=== PATIENT | male | born 1955 | race Caucasian/White ===

== ENCOUNTER 2017-11-08 12:59 | Inpatient (IN) | payer MEDICARE ==
[~2017-11-08] VITALS: Ht 177.8 cm; Wt 85.3 kg
[2017-11-08] VITALS (10 sets, daily range): BP systolic 156–201; BP diastolic 82–110
--- NOTE | 2017-11-08 13:08 | NUR ---
[id number] FROM HOME: ALOC, OVERDOSED ON NORCO UNKNOWN QUANTITY,SI NOTE AT BEDSIDE. RESPONDED TO NARCAN. BS IN FIELD 115. PLACED ON THE MONITOR. AWAITING MD FOR EVAL.
[2017-11-08 13:34] LABS: BASOPHILS % (AUTO) 0.5 % (0.0-2.0); EOSINOPHILS % (AUTO) 0.8 % (0.0-6.0); HEMATOCRIT 47 % (39-51); HEMOGLOBIN 15.5 g/dL (13.5-17.5); LYMPHOCYTES # (AUTO) 0.9 /CMM (0.8-4.8); LYMPHOCYTES % (AUTO) 22.5 % (20.0-44.0); MEAN CORPUSCULAR HEMOGLOBIN 27 PG (26.0-33.0); MEAN CORPUSCULAR HGB CONC 33 g/dl (31.0-36.0); MEAN CORPUSCULAR VOLUME 82 fL (80-96); MONOCYTES # (AUTO) 0.3 /CMM (0.1-1.30); MONOCYTES % (AUTO) 7.5 % (2.0-12.0); NEUTROPHILS # (AUTO) 2.7 /CMM (1.8-8.9); NEUTROPHILS % (AUTO) 68.7 % (43.0-81.0); PLATELET COUNT (AUTO) 175 /CMM (150-450); RDW COEFFICIENT OF VARIATION 13.7 (11.5-15.0); RED BLOOD CELL COUNT(AUTO) 5.77 MIL/uL (4.5-6.0); WHITE BLOOD COUNT (AUTO) 3.9 K/uL (4.3-11.0)
[2017-11-08 13:41] LABS: CALCIUM, SERUM 8.9 mg/dL (8.5-10.1); CARBON DIOXIDE 29 mmol/L (21-32); CHLORIDE 106 mmol/L (98-107); CREATININE 1.1 mg/dL (0.6-1.3); GLUCOSE 152 mg/dL (74-106); SODIUM SERUM 139 mmol/L (136-145); UREA NITROGEN, BLOOD 13 mg/dL (7-18)
[2017-11-08 13:47] LABS: ACETAMINOPHEN 22 ug/ml (10-30); ALANINE AMINOTRANSFERASE 21 U/L (12-78); ALBUMIN 3.2 g/dL (3.4-5.0); ALCOHOL, BLOOD < 3 mg/dL (0-0); ALKALINE PHOSPHATASE 70 U/L (46-116); ASPARTATE AMINOTRANSFERASE 11 U/L (15-37); BILIRUBIN,DIRECT 0.2 mg/dL (0.0-0.2); BILIRUBIN,TOTAL 0.7 mg/dL (0.2-1.0); SALICYLATE 0.8 mg/dL (2.8-20.0); TOTAL PROTEIN, SERUM 6.1 g/dL (6.4-8.2)
[2017-11-08] MEDS ORDERED: NALOXONE HCL 0.4 MG/ML AMPUL IV ONE (14:30)
[2017-11-08] MEDS ORDERED: IV NS 0.9% 1,000 ML BAG IV ONE (14:30)
[2017-11-08] MEDS ORDERED: NALOXONE PREFILLED SYRINGE 2 MG/2 ML SYRINGE ONE ×2 (14:38→16:16)
--- NOTE | 2017-11-08 14:55 | NUR ---
PATIENT TRANSPORTED FOR CT.
[2017-11-08 14:56] LABS: INR 0.95 (0.85-1.15)
[2017-11-08 15:01] LABS: TROPONIN I < 0.017 ng/mL (0.00-0.056)
[2017-11-08 15:16] LABS: THYROID STIMULATING HORMONE 0.546 uIU/mL (0.358-3.74)
[2017-11-08 15:21] LABS: BILIRUBIN,URINE LARGE (NEGATIVE); BLOOD, URINE Negative Ery/uL (NEGATIVE); COLOR,URINE Yellow (YELLOW); KETONES,URINE Negative (NEGATIVE); LEUKOCYTE ESTERASE ,URINE Negative (NEGATIVE); NITRITE, URINE Negative (NEGATIVE); PH,URINE 5.5 (5.0-8.0); PROTEIN,URINE Negative (NEGATIVE); UGLUCOSE Negative (NEGATIVE); UROBILINOGEN,URINE 0.2 EU/dL (0.2)
[2017-11-08 15:22] LABS: APPEARANCE,URINE Clear (CLEAR)
--- NOTE | 2017-11-08 15:30 | NUR ---
Patient is resting comfortably in bed with eyes closed. Easily aroused. VSS
[2017-11-08] MEDS ORDERED: ACETYLCYSTEINE IV ONE ×5 (16:00→17:00)
[2017-11-08] MEDS ORDERED: D5W IV ONE ×5 (16:00→17:00)
[2017-11-08] MEDS ORDERED: PIPERACILLIN /TAZOBACTAM 3.375 G in IV D5W 50 ML IV ONE (16:00)
[2017-11-08] MEDS ORDERED: ACETYLCYSTEINE IV 6,000 MG/30 ML VIAL IV ONE (16:00)
--- NOTE | 2017-11-08 16:00 | NUR ---
CALLED NURSING SAND CLEANING MACHINE OPERATOR AND REQUESTED AN ICU BED FOR THIS PT.
--- NOTE | 2017-11-08 16:01 | NUR ---
CALLED [facility] FOR PANEL CALL AND MANINDER ROWLAND WAS PAGED.
[2017-11-08] MEDS ORDERED: NALOXONE HCL 2 MG in IV D5W 245 ML IV PRN (16:30)
[2017-11-08] MEDS ORDERED: ONDANSETRON HCL/PF 4 MG/2 ML VIAL IVP PRN (16:30)
--- NOTE | 2017-11-08 16:30 | NUR ---
PT IS ASSIGNED TO ICU RM#: [id number], DX: ACETAMINOPHEN TOXICITY & SEPSIS, AND ACCEPTING: MANINDER ROWLAND NP
--- NOTE | 2017-11-08 16:57 | NUR ---
REPORT GIVEN TO GEOFFREY SOSA FOR [facility] ICU 258
[2017-11-08] MEDS ORDERED: IV NS 0.9% 1,000 ML IV ONE (17:00)
--- NOTE | 2017-11-08 17:20 | NUR ---
ENDORSED THE MUCOMYST AND NARCAN DRIP TO GEOFFREY SOSA.
[2017-11-08 17:30] LABS: ALBUMIN 2.9 g/dL (3.4-5.0); BILIRUBIN,DIRECT 0.2 mg/dL (0.0-0.2); BILIRUBIN,TOTAL 0.8 mg/dL (0.2-1.0); TOTAL PROTEIN, SERUM 5.6 g/dL (6.4-8.2)
--- NOTE | 2017-11-08 17:45 | NUR ---
CARTOGRAPHY SUPERVISOR NOTES RECEIVED PATIENT AOX1 LETHARGIC , DROWSY , FOLLOW SIMPLE COMMANDS , , NOT IN ACUTE DISTRESS , RESPIRATIONS EVEN AND UNLABORED , SPO2 OF 100% VIA 2LPM NC , SB 58 ON BEDSIDE MONITOR , AFEBRILE , NELSON CATHETER INSERTED DRAINING WITH CLEAR URINE VIA GRAVITY , SKIN ASSESSMENT DONE , NO WOUNDS NOTED , SKIN IS INTACT , IV OF L FA # 20 WITH NS @ 125ML/HR , R AC # 18 WITH NARCAN @ 0.1MG/HR INFUSING WELL , ALL NEEDS ATTENDED , BED ON LOW AND LOCKED POSITION , SIDE RAILS X2 ,CALL LIGHT WITHIN REACH , ADMISSION ORDERS CARRIED OUT , WILL CONTINUE TO MONITOR .
[2017-11-08] MEDS: ENOXAPARIN SODIUM 40 MG/0.4 ML DISP.SYRIN SQ SCH ×3 (18:11→21:00)
--- NOTE | 2017-11-08 18:19 | NUR ---
PHARMACISTS NOTES PAGED DR JOHN TO CLARIFY ADMISSION ORDERS .
--- NOTE | 2017-11-08 18:27 | NUR ---
OPERATOR TECHNICIAN NOTES AT BEDSIDE , ASKED REGARDING PT HISTORY , PER PT HAS HISTORY OF DM , POLYCYTHEMIA , AND DM , PAGED DR JOHN REGARDING BP OF 201/99 , AWAITING FOR CALL BACK . SCD PUMPS APPLIED ,
[2017-11-08] MEDS: NALOXONE HCL 2 MG in IV D5W 245 ML IV PRN (18:44)
--- NOTE | 2017-11-08 18:44 | NUR ---
AUTO CLEANER NOTES RECEIVED A CALL FROM DR JOHN , PER MD HE WILL BE HERE TO SEE THE PATIENT . MD AWARE REGARDING BP OF THE PT
--- NOTE | 2017-11-08 18:48 | NUR ---
DISTRIBUTION SYSTEM OPERATOR NOTES MED RECON NURSE AT BEDSIDE ASKING THE REGARDING LIST OF MEDICATIONS
--- NOTE | 2017-11-08 19:11 | NUR ---
REAL ESTATE LAWYER NOTES SEEN AND EVALUATED BY DR JOHN , DISCUSSED HX OF POLYCYTHEMIA , DM AND HTN , PT IS ON NARCAN DRIP @ 0.1MG/HR , SHOWED NARCAN DRIP PROCOL AND MD AGREED WITH IT , MISC ORDER PLACED , PT BP IS 194/103 WITH HX OF HTN , LATEST BS OF 137MG/DL WITH HX OF DM , NO BASELINE ABG , PT IS LETHARGIC , DROWSY , AROUSES EASILY , AFEBRILE , PT ON SECOND BAG OF MUCOMYST DRIP , VERIFIED WHEN HE WANTS TO RE ASSESS TYLENOL AND LFT'S , MD AGREED TO RECHECK IT AFTER 3 BAGS MUCOMYST .
--- NOTE | 2017-11-08 19:20 | NUR ---
ICU/RN SITTER AT BEDSIDE. Addendum: 11/08/17 at 8 by MARY FISHMAN RN ALREADY CHARTED
--- NOTE | 2017-11-08 19:20 | NUR ---
ICU/RN IN UNIT,INFORMED THAT NARCAN INCREASED TO 0.2MG/HR. PT SNORING AND HARD TO AROUSE AND RR=8-10/MIN..[id number] AT 2LN/C.OPENS EYES TO DEEP STERNAL STIMULATION.SITTER AT BEDSIDE.
[2017-11-08] MEDS ORDERED: hydrALAZINE HCL IV 20 MG VIAL IV PRN (19:30)
[2017-11-08] MEDS ORDERED: DEXTROSE 50%-WATER 50 ML DISP.SYRIN IV PRN (19:30)
--- NOTE | 2017-11-08 21:00 | NUR ---
ICU/RN LOVENOX NOT GIVEN,SEE EMAR.
--- NOTE | 2017-11-08 21:30 | NUR ---
ICU/RN SIGNIFICANT OTHER AT BEDSIDE VISITING,CONDITION REPORT GIVEN,QUESTIONS ANSWERED.DRIVERS LICENSE OF PT GIVEN TO ROSITA[[email or web address]]
[2017-11-08] MEDS ORDERED: EMPA25TA PO (21:45)
[2017-11-08] MEDS ORDERED: CARB200T PO (21:45)
[2017-11-08] MEDS ORDERED: GLIP5TAB26 PO (21:45)
[2017-11-08] MEDS ORDERED: ATOR80TA PO (21:45)
[2017-11-08] MEDS ORDERED: PRED20TA PO (21:45)
[2017-11-08] MEDS ORDERED: ROPI1TAB2 PO (21:45)
[2017-11-08] MEDS ORDERED: LORA-588 PO (21:45)
[2017-11-08] MEDS ORDERED: IRBE300T19 PO (21:45)
[2017-11-08] MEDS ORDERED: HYDR25TA4 PO (21:45)
[2017-11-08] MEDS ORDERED: BUPR100T6 PO (21:45)
[2017-11-08] MEDS ORDERED: METO-358 PO (21:45)
[2017-11-08] MEDS ORDERED: ETOD400T PO (21:45)
--- NOTE | 2017-11-08 22:30 | NUR ---
ICU/RN POISON CONTROL CALLED RE:RESPONSE OF MUCOMYST.CONDITION REPORT GIVEN.
[2017-11-08] MEDS: INSULIN REGULAR, HUMAN 100 UNIT/ML 3 ML VIAL SQ PRN (23:34)
[2017-11-08] MEDS: BLOOD SUGAR DIAGNOSTIC 1 EACH STRIP IN SCH (23:35)
[2017-11-09] VITALS (34 sets, daily range): BP systolic 115–178; BP diastolic 71–104
[2017-11-09] MEDS ORDERED: NALOXONE HCL 0.4 MG/ML AMPUL ONE (04:34)
[2017-11-09 04:40] LABS: HEMATOCRIT 46 % (39-51); HEMOGLOBIN 15.4 g/dL (13.5-17.5); LYMPHOCYTES # (AUTO) 0.5 /CMM (0.8-4.8); LYMPHOCYTES % (AUTO) 4.7 % (20.0-44.0); MEAN CORPUSCULAR HEMOGLOBIN 28 PG (26.0-33.0); MEAN CORPUSCULAR HGB CONC 33 g/dl (31.0-36.0); MEAN CORPUSCULAR VOLUME 84 fL (80-96); MONOCYTES # (AUTO) 0.4 /CMM (0.1-1.30); MONOCYTES % (AUTO) 3.7 % (2.0-12.0); NEUTROPHILS # (AUTO) 10.1 /CMM (1.8-8.9); NEUTROPHILS % (AUTO) 91.6 % (43.0-81.0); PLATELET COUNT (AUTO) 168 /CMM (150-450); RDW COEFFICIENT OF VARIATION 14.5 (11.5-15.0); RED BLOOD CELL COUNT(AUTO) 5.51 MIL/uL (4.5-6.0); WHITE BLOOD COUNT (AUTO) 11.1 K/uL (4.3-11.0)
[2017-11-09 04:52] LABS: CALCIUM, SERUM 7.8 mg/dL (8.5-10.1); MAGNESIUM 1.8 mg/dL (1.8-2.4); POTASSIUM 3.8 mmol/L (3.5-5.1); TOTAL PROTEIN, SERUM 5.9 g/dL (6.4-8.2)
[2017-11-09] MEDS: NALOXONE HCL 2 MG in IV D5W 245 ML IV PRN (04:58)
[2017-11-09 05:02] LABS: THYROID STIMULATING HORMONE 0.251 uIU/mL (0.358-3.74)
[2017-11-09] MEDS: INSULIN REGULAR, HUMAN 100 UNIT/ML 3 ML VIAL SQ PRN (06:12)
[2017-11-09] MEDS: BLOOD SUGAR DIAGNOSTIC 1 EACH STRIP IN SCH ×4 (06:13→23:13)
--- NOTE | 2017-11-09 07:03 | NUR ---
ICU/RN REPORT AND CARE OF PT. GIVEN TO SARAH HALE.PT AROUSES EASILY.NARCAN DRIP DECREASED TO 0.1MG/HR.OX3.
--- NOTE | 2017-11-09 08:49 | NUR ---
received pt from day shift, alert, follows commands, SR, on 2L 02 sat well, lungs clear, no edema, seen by Dr Rios, Narcmaru and Mucomyst drips are D/C by , NPO, F/C good output, v/s stable, no pain, pt tuned and repositioned.
[2017-11-09] MEDS ORDERED: CARBAMAZEPINE 200 MG TABLET PO SCH (09:00)
[2017-11-09] MEDS ORDERED: buPROPion SR 100 MG TABLET.ER PO SCH (09:00)
[2017-11-09] MEDS ORDERED: Medication Not On Formulary EA (Irbesartan (Avapro) 1 TAB) PO SCH (09:00)
[2017-11-09] MEDS ORDERED: GLIPIZIDE XL 5 MG TAB.OSM.24 PO SCH (09:00)
[2017-11-09] MEDS ORDERED: CLONIDINE HCL 0.1 MG TABLET PO PRN (09:00)
[2017-11-09] MEDS ORDERED: glipiZIDE XL 2.5 MG TAB.OSM.24 PO SCH (09:30)
[2017-11-09] MEDS: PANTOPRAZOLE 40 MG VIAL IV SCH (09:36)
[2017-11-09] MEDS: LORATADINE 10 MG TABLET PO SCH (09:37)
[2017-11-09] MEDS: HYDROCHLOROTHIAZIDE 25 MG TABLET PO SCH (09:37)
[2017-11-09] MEDS: METOPROLOL SUCCINATE 50 MG TAB.SR.24H PO SCH (09:48)
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
--- NOTE | 2017-11-09 12:14 | NUR ---
pt is resting in the bed, alert, follows commands, seen by social service worker, v/s stable, no pain, pt turned and repositioned q2hrs.
[2017-11-09] MEDS ORDERED: ETODOLAC 200 MG PO SCH (13:00)
[2017-11-09] MEDS: FLUOXETINE HCL 20 MG CAPSULE PO SCH (14:10)
[2017-11-09] MEDS ORDERED: K PHOS NEUTRAL 250 MG TABLET PO ONE (16:00)
--- NOTE | 2017-11-09 16:10 | NUR ---
pt is resting in the bed, v/s stable, no pain, pt cleaned, changed and repositioned q2hrs.
--- NOTE | 2017-11-09 17:45 | NUR ---
PATIENT ARRIVED FROM ICU. NONLABORED BREATHING NOTED ON 2 L NASAL CANNULA. IV SITE ON RIGHT AC 18 AND LEFT FA 20 PATENT AND INTACT. BED IN LOWEST LOCKED POSITION. CALL LIGHT WITHIN REACH. DENYING SI AND DENYING HI. NO SHARP OBJECTS AT BEDSIDE. SITTER AT BEDSIDE
--- NOTE | 2017-11-09 17:54 | NUR ---
pt is transferred to [facility], v/s stable, no pain.
[2017-11-09] MEDS ORDERED: ropiniROLE 0.5 MG TABLET PO SCH (18:00)
--- NOTE | 2017-11-09 18:26 | NUR ---
PATIENT REFUSING INSULIN. BLOOD SUGAR AT 136, MEAL PROVIDED, PATIENT STATING HE IS "NOT THAT HUNGRY, I AM JUST GONNA TAKE A FEW BITES.'
--- NOTE | 2017-11-09 19:20 | NUR ---
RN CLOSING NOTES NONLABORED BREATHING NOTED ON 2 L NASAL CANNULA. PATIENT AOX2-3. IV SITE ON RIGHT AC 18 AND LEFT FA 20 PATENT AND INTACT. BED IN LOWEST LOCKED POSITION. CALL LIGHT WITHIN REACH. DENYING SI AND DENYING HI. NO SHARP OBJECTS AT BEDSIDE. SITTER AT BEDSIDE PATIENT DENYING HEADACHES,CATAPRES ADMINISTERED FOR HIGH BP- SEE VS CHARTING. ENDORSED TO GEOFFREY DE LA VEGA
--- NOTE | 2017-11-09 20:00 | NUR ---
RN NOTES RECEIVED PT. AWAKE ON BED, A/OX3, PARTNER AT BEDSIDE, IV FLUID 1/2 NS + 20MEQ OF POTASSIUM RUNNING t 100ML/HR, DENIES PAIN, NO SOB, CALM, SITTER AT BEDSIDE, SIDERAILSUPX2, CONTINUE TO MONITOR
[2017-11-09] MEDS ORDERED: BENZTROPINE MESYLATE (1 MG) 1 MG TABLET PO SCH (22:00)
[2017-11-09] MEDS ORDERED: risperiDONE 0.25 MG TABLET PO SCH (22:00)
--- NOTE | 2017-11-09 23:10 | NUR ---
RN NOTES BLOOD SUGAR- 145, PT REFUSING INSULIN
[2017-11-10] MEDS: BLOOD SUGAR DIAGNOSTIC 1 EACH STRIP IN SCH ×2 (05:52→12:21)
--- NOTE | 2017-11-10 06:38 | NUR ---
RN NOTES AWAKE, DENIES PAIN, CALM AND COOPERATIVE, SITTER AT BEDSIDE, DENIES PAIN,NO SOB, IV LINE PATENT NO REDNESS OR SWOLLEN, SIDERAILSUPX2, PT. NEEDS ATTENDED
--- NOTE | 2017-11-10 07:15 | NUR ---
RN OPENING NOTES RECEIVED PATIENT IN BED, AWAKE, ALERT AND ORIENTED X3. NO ACUTE DISTRESS, NO SOB. IV SITE INTACT AND PATENT. KEPT PATIENT SAFE AND COMFORTABLE. BED IN LOW/LOCKED POSITION, SIDERAILS UPX2, CALL LIGHT IN REACH. WILL CONTINUE TO MONITOR ACCORDINGLY. Addendum: 11/10/17 at 0747 by CATARINO OLMEDO FOLET CATH IN PLACE, DRAINING CLEAR YELLOW URINE
[2017-11-10] MEDS: PANTOPRAZOLE 40 MG VIAL IV SCH (08:38)
[2017-11-10] MEDS: HYDROCHLOROTHIAZIDE 25 MG TABLET PO SCH (08:43)
[2017-11-10] MEDS: LORATADINE 10 MG TABLET PO SCH (08:43)
[2017-11-10 08:49] VITALS: BP 147/86
[2017-11-10] MEDS: METOPROLOL SUCCINATE 50 MG TAB.SR.24H PO SCH (08:49)
[2017-11-10 08:54] LABS: BASOPHILS % (AUTO) 0.5 % (0.0-2.0); EOSINOPHILS % (AUTO) 1.6 % (0.0-6.0); HEMATOCRIT 49 % (39-51); HEMOGLOBIN 15.2 g/dL (13.5-17.5); LYMPHOCYTES # (AUTO) 1.4 /CMM (0.8-4.8); LYMPHOCYTES % (AUTO) 25.3 % (20.0-44.0); MEAN CORPUSCULAR HEMOGLOBIN 26 PG (26.0-33.0); MEAN CORPUSCULAR HGB CONC 31 g/dl (31.0-36.0); MEAN CORPUSCULAR VOLUME 84 fL (80-96); MONOCYTES # (AUTO) 0.5 /CMM (0.1-1.30); MONOCYTES % (AUTO) 8.9 % (2.0-12.0); NEUTROPHILS # (AUTO) 3.6 /CMM (1.8-8.9); NEUTROPHILS % (AUTO) 63.7 % (43.0-81.0); PLATELET COUNT (AUTO) 200 /CMM (150-450); RDW COEFFICIENT OF VARIATION 14.9 (11.5-15.0); WHITE BLOOD COUNT (AUTO) 5.7 K/uL (4.3-11.0)
[2017-11-10] MEDS ORDERED: ATORVASTATIN 40 MG TABLET PO SCH (09:00)
[2017-11-10 09:14] LABS: BILIRUBIN,TOTAL 1.2 mg/dL (0.2-1.0); CALCIUM, SERUM 8.7 mg/dL (8.5-10.1); CREATININE 1.1 mg/dL (0.6-1.3); MAGNESIUM 1.9 mg/dL (1.8-2.4); PHOSPHORUS 2.4 mg/dL (2.5-4.9); POTASSIUM 3.8 mmol/L (3.5-5.1)
[2017-11-10] MEDS ORDERED: buPROPion SR 100 MG TABLET.ER PO SCH (09:22)
--- NOTE | 2017-11-10 09:30 | NUR ---
DR JOHN ON BEDSIDE TALKING TO PATIENT. PER MD, PATIENT IS MEDICALLY CLEARED.
--- NOTE | 2017-11-10 10:02 | NUR ---
RN NOTES SCHED 0900 LIPITOR WAS NON ADMIN. MEDICATION WAS SCHEDULED FOR HS ONLY. VERIFIED WITH TRACY FROM PHARMACY
--- NOTE | 2017-11-10 10:15 | NUR ---
RN NOTES DISCONTINUED NELSON CATHETER PER DR JOHN'S ORDER. NO COMPLICATIONS
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
--- NOTE | 2017-11-10 12:43 | NUR ---
ART, FROM CRISIS TEAM AT THE BEDSIDE TALKING TO PATIENT.
[2017-11-10] MEDS: FLUOXETINE HCL 20 MG CAPSULE PO SCH (12:56)
[2017-11-10] MEDS ORDERED: K PHOS NEUTRAL 250 MG TABLET PO ONE (13:00)
--- NOTE | 2017-11-10 15:25 | NUR ---
DISCHARGED PATIENT IN STABLE CONDITION, DISCHARGED TO [facility] ROOM 216-A. ACCOMPANIED BY GEOFFREY SCHAEFFER AND PRIMARY RN TO GPS UNIT. DISCHARGE INSTRUCTIONS GIVEN, VERBALIZED UNDERSTANDING, PAPERWORK GIVEN. ALL BELONGINGS RETURNED, FORM SIGNED. REMOVED IV, APPLIED PRESSURE, NO BLEEDING, NO COMPLICATIONS. REMOVED NAME BAND. BEDSIDE REPORT GIVEN TO GEOFFREY LEE.
[2017-11-10] MEDS ORDERED: INSU100V3 SQ (15:41)
[2017-11-10] MEDS ORDERED: BENZ0.5T43 PO (15:41)
[2017-11-10] MEDS ORDERED: FLUO20CA36 PO (15:41)
[2017-11-10] MEDS ORDERED: RISP0.253 PO (15:41)
[2017-11-10] MEDS ORDERED: BLOO-668 IN (15:41)
[2017-11-10] MEDS ORDERED: CLON0.1T PO (15:41)
[2017-11-11] MEDS ORDERED: buPROPion SR 100 MG TABLET.ER PO SCH (09:00)
== END 2017-11-10 15:25 | DRG 917 ==
LOC: ER 13:01 → ICU 16:36 → MEDSG2 11-09 17:39
PROVIDERS: ADMIT Internal Medicine; ATTEND Internal Medicine
DX: T40.4X2A Poisoning by other synthetic narcotics, intentional self-harm, initial encounter (principal); J96.01 Acute respiratory failure with hypoxia; G93.40 Encephalopathy, unspecified; E87.2 Acidosis; F05 Delirium due to known physiological condition; E11.9 Type 2 diabetes mellitus without complications; I10 Essential (primary) hypertension; E78.5 Hyperlipidemia, unspecified; F32.9 Major depressive disorder, single episode, unspecified; Z88.5 Allergy status to narcotic agent; Z88.8 Allergy status to other drugs, medicaments and biological substances; T39.1X2A Poisoning by 4-Aminophenol derivatives, intentional self-harm, initial encounter; Y92.009 Unspecified place in unspecified non-institutional (private) residence as the place of occurrence of the external cause; Z91.419 Personal history of unspecified adult abuse; T42.4X2A Poisoning by benzodiazepines, intentional self-harm, initial encounter; G31.84 Mild cognitive impairment of uncertain or unknown etiology
CPT/HCPCS: 36415; 70450-TC; 71045-TC; 72125-TC; 80048-TC; 80053-TC; 80061-TC; 80076-TC; 80305; 81000-TC; 82962-TC; 83605-TC; 83735-TC; 84100-TC; 84443-TC; 84484-TC; 85025-TC; 85730-TC; 87040-TC; 87086-TC; A4606; C9113; G0480; J0132; J0360; J1650; J1815; J2310; J2543; J3480; J3490; J7030; J7060; J7070; Z7610

== ENCOUNTER 2017-11-10 15:26 | Inpatient (IN) | payer OTHER ==
[~2017-11-10] VITALS: Ht 177.8 cm; Wt 68.0 kg
[~2017-11-10 15:26] MED LIST: ATOR80TA PO; BUPR100T6 PO; CARB200T PO; EMPA25TA PO; ETOD400T PO; GLIP5TAB26 PO; HYDR25TA4 PO; IRBE300T19 PO; LORA-588 PO; METO-358 PO; PRED20TA PO; ROPI1TAB2 PO
[2017-11-10] MEDS ORDERED: CLON0.1T PO (15:41)
[2017-11-10] MEDS ORDERED: INSU100V3 SQ (15:41)
[2017-11-10] MEDS ORDERED: RISP0.253 PO (15:41)
[2017-11-10] MEDS ORDERED: FLUO20CA36 PO (15:41)
[2017-11-10] MEDS ORDERED: BENZ0.5T43 PO (15:41)
[2017-11-10] MEDS ORDERED: BLOO-668 IN (15:41)
[2017-11-10 16:00] VITALS: BP 164/85
--- NOTE | 2017-11-10 16:00 | NUR ---
GPS/RN RECEIVED PT DIRECT ADMIT FROM 2W/SOH. PT IS ON 5150 HOLD FOR DT( OPIATE OVERDOSE). PT IS A/O X4 AMBULATORY SKIN CLEAR NO ACUTE DISTRESS NOTED, NO SI OR HI AT THE TIME OF ASSESSMENT. DR COSME CALLED FOR THE ORDERS. DR JOHN MADE AWARE OF ADMISSION WITH ORDERS TO CONTINUE MEDS FROM 2W.
[2017-11-10] MEDS ORDERED: LORAZEPAM 0.5 MG TABLET PO PRN (16:30)
[2017-11-10] MEDS ORDERED: TEMAZEPAM 7.5 MG CAPSULE PO PRN (16:30)
[2017-11-10] MEDS ORDERED: MAG HYDROX/AL HYDROX/SIMETH 30 ML UDC PO PRN (16:30)
[2017-11-10] MEDS ORDERED: MAGNESIUM HYDROXIDE 30 ML UDC PO PRN (16:30)
[2017-11-10] MEDS ORDERED: ACETAMINOPHEN 325 MG TABLET PO PRN (16:30)
[2017-11-10] MEDS ORDERED: CLONIDINE HCL 0.1 MG TABLET PO PRN (17:00)
[2017-11-10] MEDS ORDERED: INSULIN REGULAR, HUMAN 100 UNIT/ML 3 ML VIAL SQ PRN (17:00)
[2017-11-10] MEDS: ropiniROLE 0.5 MG TABLET PO SCH (17:35)
[2017-11-10] MEDS: BLOOD SUGAR DIAGNOSTIC 1 EACH STRIP IN SCH (17:35)
[2017-11-10 20:00] VITALS: BP_SYST 147; BP_SYST 152; BP_DIAS 84; BP_DIAS 88
[2017-11-10] MEDS: BENZTROPINE MESYLATE (1 MG) 1 MG TABLET PO SCH (22:03)
[2017-11-10] MEDS: ATORVASTATIN 40 MG TABLET PO SCH (22:03)
[2017-11-11] MEDS: BLOOD SUGAR DIAGNOSTIC 1 EACH STRIP IN SCH ×5 (01:03→23:04)
[2017-11-11 08:00] VITALS: BP 145/82
[2017-11-11 08:05] LABS: CHOLESTEROL 220 mg/dL (<200); HDL CHOLESTEROL 37 mg/dL (40-60); LDL 127 mg/dL (0-99); TRIGLYCERIDES 371 mg/dL (30-150)
[2017-11-11 08:07] LABS: ALBUMIN 3.5 g/dL (3.4-5.0); BILIRUBIN,TOTAL 1.2 mg/dL (0.2-1.0); CALCIUM, SERUM 9.4 mg/dL (8.5-10.1); CREATININE 1.4 mg/dL (0.6-1.3); POTASSIUM 3.8 mmol/L (3.5-5.1)
[2017-11-11] MEDS: LORATADINE 10 MG TABLET PO SCH (08:21)
[2017-11-11] MEDS: METOPROLOL SUCCINATE 50 MG TAB.SR.24H PO SCH (08:22)
[2017-11-11] MEDS: HYDROCHLOROTHIAZIDE 25 MG TABLET PO SCH (08:22)
[2017-11-11] MEDS: glipiZIDE XL 2.5 MG TAB.OSM.24 PO SCH (08:22)
[2017-11-11] MEDS: BUPROPION XL 150 MG TAB.ER.24 PO SCH (13:44)
[2017-11-11] MEDS: FLUOXETINE HCL 20 MG CAPSULE PO SCH (13:44)
[2017-11-11 16:00] VITALS: BP 157/86
[2017-11-11] MEDS: ropiniROLE 0.5 MG TABLET PO SCH (18:08)
[2017-11-11] MEDS: ATORVASTATIN 40 MG TABLET PO SCH (22:54)
[2017-11-11] MEDS: BENZTROPINE MESYLATE (1 MG) 1 MG TABLET PO SCH (22:54)
[2017-11-11] MEDS: risperiDONE 0.25 MG TABLET PO SCH (22:55)
[2017-11-12] MEDS: BLOOD SUGAR DIAGNOSTIC 1 EACH STRIP IN SCH ×2 (06:38→11:19)
[2017-11-12 08:00] VITALS: BP 148/86
[2017-11-12] MEDS: FLUOXETINE HCL 20 MG CAPSULE PO SCH (08:33)
[2017-11-12] MEDS: BUPROPION XL 150 MG TAB.ER.24 PO SCH (08:33)
[2017-11-12] MEDS: LORATADINE 10 MG TABLET PO SCH (08:36)
[2017-11-12] MEDS: HYDROCHLOROTHIAZIDE 25 MG TABLET PO SCH (08:36)
[2017-11-12] MEDS: METOPROLOL SUCCINATE 50 MG TAB.SR.24H PO SCH (08:37)
[2017-11-12] MEDS: glipiZIDE XL 2.5 MG TAB.OSM.24 PO SCH (08:37)
[2017-11-12] MEDS ORDERED: DEXTROSE 50%-WATER 50 ML DISP.SYRIN IV PRN (11:30)
[2017-11-12] MEDS: BLOOD SUGAR DIAGNOSTIC 1 EACH STRIP VI SCH ×3 (11:54→21:22)
[2017-11-12] MEDS: *INSULIN REGULAR(HUMULIN R)HUM 100 UNIT/ML VIAL SQ PRN ×2 (12:01→21:23)
[2017-11-12 16:00] VITALS: BP 150/66
[2017-11-12] MEDS: INSULIN REGULAR, HUMAN 100 UNIT/ML 3 ML VIAL SQ PRN (16:58)
[2017-11-12] MEDS: ropiniROLE 0.5 MG TABLET PO SCH (17:10)
[2017-11-12 19:56] VITALS: BP 185/90
[2017-11-12] MEDS: BENZTROPINE MESYLATE (1 MG) 1 MG TABLET PO SCH (21:22)
[2017-11-12] MEDS: risperiDONE 0.25 MG TABLET PO SCH (21:22)
[2017-11-12] MEDS: ATORVASTATIN 40 MG TABLET PO SCH (21:22)
--- NOTE | 2017-11-12 21:24 | NUR ---
GPS RN NOTES BLOOD SUGAR CHECK , BLOOD SUGAR 148 MGDL 2 UNITS HUMULIN R GIVEN ,
[2017-11-12 23:00] VITALS: BP 136/70
[2017-11-13 08:00] VITALS: BP 125/94
[2017-11-13] MEDS: Fluoxetine 10 mg capsule PO SCH (08:36)
[2017-11-13] MEDS: glipiZIDE XL 2.5 MG TAB.OSM.24 PO SCH (08:37)
[2017-11-13] MEDS: METOPROLOL SUCCINATE 50 MG TAB.SR.24H PO SCH (08:37)
[2017-11-13] MEDS: BUPROPION XL 150 MG TAB.ER.24 PO SCH (08:37)
[2017-11-13] MEDS: BLOOD SUGAR DIAGNOSTIC 1 EACH STRIP VI SCH ×4 (08:40→21:32)
[2017-11-13] MEDS: INSULIN REGULAR, HUMAN 100 UNIT/ML 3 ML VIAL SQ PRN ×2 (08:43→12:17)
[2017-11-13] MEDS: HYDROCHLOROTHIAZIDE 25 MG TABLET PO SCH (09:04)
[2017-11-13] MEDS: LORATADINE 10 MG TABLET PO SCH (09:04)
[2017-11-13] MEDS: METFORMIN 500 MG TABLET PO SCH ×2 (09:18→16:38)
--- NOTE | 2017-11-13 12:21 | NUR ---
Nahum ([phone]) from [facility] called and stated that the SW would have to send daily clinicals for this pt to the fax number: [phone].
--- NOTE | 2017-11-13 12:22 | NUR ---
UR Note: SHYLA faxed a clinical to Nahum ([phone]) from [facility] to the fax number: .
--- NOTE | 2017-11-13 14:02 | NUR ---
Initial Discharge Plan: Pt currently resides with his , Micky Gomez ([phone]) at [address] [place] [address]; ([phone]). Per pt and his , the pt will return to their home with an aftercare plan set up by their insurance. SW will work with the pt, the pt's and the MD regarding appropriate discharge planning. SW will form a safe and proper discharge.
--- NOTE | 2017-11-13 14:03 | NUR ---
SW called the pt's , Micky Gomez ([phone]), and discussed the initial treatment plan.
--- NOTE | 2017-11-13 15:05 | NUR ---
SHYLA called Malena ([phone] ext [phone]) from [facility] and informed her that the psychiatrist decided to clear the pt for discharge. She stated that she would call the SW back with the aftercare appointments.
--- NOTE | 2017-11-13 15:08 | NUR ---
SHYLA called the pt's , Micky Gomez ([phone]), and informed him that the pt is being discharged today and he stated that he would arrive around 4:30 to pick him up.
--- NOTE | 2017-11-13 15:19 | NUR ---
Malena ([phone] ext [phone]) from [facility] called the SW and left the aftercare appointment information on her voicemail. Aftercare Appointments Individual Therapy Dr. Lori Strickland [address] [place] [address] Call to make apt! Medication Management Dr. Madeline Strauss [address] [facility], [address], [place] [address] Apt is on 12/11/17 at 11AM
[2017-11-13 16:00] VITALS: BP 169/85
[2017-11-13] MEDS: ropiniROLE 0.5 MG TABLET PO SCH (18:10)
--- NOTE | 2017-11-13 20:28 | NUR ---
GPS-RN PATIENT C/O FEELING ANXIOUS. ADMINISTERED ATIVAN 0.5MG PO ORDERED. WILL CONTINUE TO MONITOR [id number] CHECK FOR SAFETY AND BEHAVIOR.
[2017-11-13 20:30] VITALS: BP 148/94
[2017-11-13 20:53] VITALS: BP 154/58
[2017-11-13] MEDS: BENZTROPINE MESYLATE (1 MG) 1 MG TABLET PO SCH (21:32)
[2017-11-13] MEDS: risperiDONE 0.25 MG TABLET PO SCH (21:32)
[2017-11-13] MEDS: ATORVASTATIN 40 MG TABLET PO SCH (21:32)
[2017-11-14 08:00] VITALS: BP 143/84
[2017-11-14] MEDS: BLOOD SUGAR DIAGNOSTIC 1 EACH STRIP VI SCH ×2 (08:57→12:57)
[2017-11-14] MEDS: METOPROLOL SUCCINATE 50 MG TAB.SR.24H PO SCH (10:26)
[2017-11-14] MEDS: Fluoxetine 10 mg capsule PO SCH (10:26)
[2017-11-14] MEDS: BUPROPION XL 150 MG TAB.ER.24 PO SCH (10:26)
[2017-11-14] MEDS: glipiZIDE XL 2.5 MG TAB.OSM.24 PO SCH (10:27)
[2017-11-14] MEDS: LORATADINE 10 MG TABLET PO SCH (10:27)
[2017-11-14] MEDS: METFORMIN 500 MG TABLET PO SCH (10:29)
[2017-11-14 10:30] VITALS: BP 143/84
[2017-11-14] MEDS: HYDROCHLOROTHIAZIDE 25 MG TABLET PO SCH (10:30)
--- NOTE | 2017-11-14 10:50 | NUR ---
Chikis ([phone]) from [employer] ([facility]) called the SW and informed her that she is following up with this case regarding the pt around 4:20pm. The SW informed her that the pt is being discharged home to his within the next 30 minutes at which point Chikis stated that they have to verify that it is a safe discharge. She stated that she would send one of their social workers the following morning to assess the pt and that he cannot be discharged until then.
--- NOTE | 2017-11-14 10:53 | NUR ---
SHYLA called the pt's , Micky Gomez ([phone]), and informed him that the pt cannot be discharged until someone from [facility] comes in and assesses the pt. He stated that he was already at the hospital and that he would at least like to visit the pt if he cannot take him home today.
--- NOTE | 2017-11-14 10:58 | NUR ---
SW called the pt's psychiatrist, Dr. Skye Krishnan, and informed him that the pt cannot be discharged until he is assessed by the APS SW the following morning.
--- NOTE | 2017-11-14 11:00 | NUR ---
SHYLA called Malena ([phone] ext [phone]) from [facility] and informed her that the pt cannot be discharged today until the APS director social welfare comes in the following morning to assess the pt. Malena stated that she would like to be updated about the status of the discharge.
--- NOTE | 2017-11-14 11:01 | NUR ---
SHYLA met with Cielo Thorpe ([phone]), APS case management social worker, who came in to assess the pt with the SW present in the room. Cielo asked the pt about his relationship with his and then asked the pt where he wants to be discharged to. Cielo then informed the pt that he will be making a visit to their home just to ensure the pt's safety and confirmed the address. The SW informed Cielo that there are aftercare appointments that are set up for the pt and that the pt is going to ask his individual therapist if family therapy can be an option. Cielo stated that the pt is cleared for discharge.
--- NOTE | 2017-11-14 11:11 | NUR ---
SHYLA called Malena ([phone] ext [phone]) from [facility] and informed her that the APS community mental health social worker cleared the pt for discharge and that the pt will most likely be discharged today.
--- NOTE | 2017-11-14 11:12 | NUR ---
Nahum ([phone]) from [facility] called the SW and informed her that a clinical needs to be sent in. SW informed him that the pt was set for discharge yesterday and then stated that APS came in and assessed him so that he would most likely be discharged today instead.
--- NOTE | 2017-11-14 11:50 | NUR ---
UR Note: SHYLA faxed a clinical to Nahum ([phone]) from [facility] to the fax number: .
[2017-11-14] MEDS: *INSULIN REGULAR(HUMULIN R)HUM 100 UNIT/ML VIAL SQ PRN (13:02)
--- NOTE | 2017-11-14 14:38 | NUR ---
dc order given from psych md as well as dr. lo,papers signed,belongings given to pt. and escorted to lobby by promotions firm accounts manager for [employer] picked edge sewing machine operator. pt. denies suicidal ideation or homicidal ideation.
--- NOTE | 2017-11-14 16:18 | NUR ---
Discharge Note: Pt was discharged home to [address] [place] [address] [address] [id number]; ([phone]). Pt ordered himself an Uber to take him home around 4pm because his , Micky Gomez ([phone]), had surgery earlier that day. Upon discharge, the pt appeared to be in a euthymic mood with a calm affect. Pt stated that he is no longer having any suicidal ideation and denied homicidal ideation as well. Pt denied both auditory and visual hallucinations. Pt will be under the care of psychiatrist, Dr. Lori Strickland, located at [address] [place] [address]; [phone] and physical therapy manager, Dr. Madeline Strauss, located at [address] [facility] [address] [address], [place] [address]; [phone].
--- NOTE | 2017-11-15 13:11 | NUR ---
UR Note: SHYLA faxed a discharge clinical to Nahum ([phone]) from [facility] to the fax number: .
== END 2017-11-14 16:14 | disposition home or self-care (01) | DRG 885 ==
LOC: GPS 15:26
PROVIDERS: ADMIT Psychiatry & Neurology Psychiatry; ATTEND Psychiatry & Neurology Psychiatry
DX: F33.2 Major depressive disorder, recurrent severe without psychotic features (principal); N17.0 Acute kidney failure with tubular necrosis; E11.9 Type 2 diabetes mellitus without complications; E78.5 Hyperlipidemia, unspecified; K21.9 Gastro-esophageal reflux disease without esophagitis; Z91.5 Personal history of self-harm; Z79.84 Long term (current) use of oral hypoglycemic drugs; I10 Essential (primary) hypertension
CPT/HCPCS: 36415; 80048-TC; 80053-TC; 80061-TC; 82962-TC; 87081-TC; J1815